=== PATIENT | male | born 1940 | race Caucasian/White ===

== ENCOUNTER 2023-09-19 14:20 | Outpatient (CLI) | payer MEDICARE, BC, SELFPAY ==
--- NOTE | 2023-09-19 14:30 | MR_ITS ---
[address] [address] Phone:?[phone] Fax:?[phone] Referring Physician Information: Tayler Ruelas [address] [facility] [address] Phone:?[phone] Fax:?[phone] Patient:?Kam Maloney D.O.B:?1940 Sex:?Male Phone:?[phone] [facility] MRN:?[id number] Exam Date:?09/19/2023 EXAM: MRI of the RIGHT FOOT, including forefoot and midfoot, without contrast CLINICAL INFORMATION: Male, 83 years old, with right foot pain. INDICATION: Evaluate for internal derangement. PRIOR SURGERY: None reported. PLAIN FILMS: None available. COMPARISONS: No prior MRIs available. TECHNICAL INFORMATION: Using a 1.5T MR scanner and a localizing surface coil: sagittals: PD, T2 axials (long-axis): PD, T2, STIR coronals (short-axis): T1, STIR SEDATION: None CONTRAST: None FINDINGS: Osseous structures: Forefoot: No fracture, stress injury or marrow edema/pathology. 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 Midfoot: No fracture, stress injury or marrow edema/pathology. Tarsal coalition: No calcaneonavicular or cubonavicular coalition. Joints: IP: No arthropathy or pathologic effusion. MTP: Mild 1st MTP joint space narrowing and minimal osteophytosis. The 2nd-5th MTP joints are unremarkable. TMT: No arthropathy or pathologic effusion. Tarsal: No arthropathy or pathologic effusion. Lisfranc joint ligamentous complex: Lisfranc ligament complex: Dorsal, interosseous and plantar ligaments are intact, without sprain or disruption. TMT/intermetatarsal ligaments: Intact without sprain/disruption. Myotendinous structures: Flexor tendons: Intact, without tendinopathy or tear. However, there is mild- moderate tenosynovitis versus grade 1 strain along the flexor digitorum longus myotendinous junction (sagittal T2 series 3 image 48 and coronal STIR series 5 image 36). Extensor tendons: Intact, without tendinopathy, tear, or tenosynovitis. Plantar aponeurosis: Normal, without ongoing fasciopathy, tear or mass, although its proximal aspect at calcaneus is not included. Intrinsic musculature: Marked atrophy and edema is present throughout the intrinsic foot musculature (coronal T1 series 4 and coronal STIR series 5 image 30). Soft tissues: Mild-moderate 3rd intermetatarsal bursitis. No evidence of a neuroma. Moderate marked generalized soft tissue edema throughout the midfoot and forefoot. IMPRESSION: 1. Diffuse atrophy and edema throughout the intrinsic foot musculature, which is nonspecific, but commonly seen in the setting of diabetes mellitus. 2. Superimposed grade 1 myotendinous junction strain versus mild-moderate tenosynovitis involving the flexor digitorum longus. 3. Mild 1st MTP joint osteoarthritis. 4. No fracture or osseous stress reaction. 5. No ligamentous sprain/tear. BC Electronically signed on 09/20/2023 9:41:00 AM by Carl Michael M.D.
== END 2023-09-19 14:21 | disposition home or self-care (01) ==
LOC: MRI 14:22
PROVIDERS: PCP Internal Medicine; Visit Provider Physician Assistant
DX: M79.671 Pain in right foot (principal); M19.071 Primary osteoarthritis, right ankle and foot
CPT/HCPCS: 73718